=== PATIENT | female | born 1955 | race Two or more races ===

== ENCOUNTER 2021-06-11 10:11 | Emergency (ER) | payer OTHER ==
[~2021-06-11] VITALS: Ht 160 cm; Wt 81.6 kg
[2021-06-11] MEDS ORDERED: LISI-659 PO (10:36)
[2021-06-11] MEDS ORDERED: HYDR12.55 PO (10:36)
[2021-06-11] MEDS ORDERED: MORPHINE SULFATE 2 MG/1 ML DISP.SYRIN IV ONE ×2 (11:00→13:15)
[2021-06-11] MEDS ORDERED: IV NORMAL SALINE 1000 ML BAG IV ONE ×2 (11:00→12:15)
[2021-06-11] MEDS ORDERED: ONDANSETRON 4 MG/2 ML VIAL IV ONE (11:00)
[2021-06-11] MEDS ORDERED: ONDANSETRON 4 MG/2 ML VIAL ONE (11:25)
[2021-06-11] MEDS ORDERED: MORPHINE SULFATE 2 MG/1 ML DISP.SYRIN ONE ×2 (11:25→13:14)
[2021-06-11 11:26] LABS: HEMATOCRIT 43.9 % (31.2-41.9); MEAN CORPUSCULAR HEMOGLOBIN 27.8 uug (24.7-32.8); MEAN CORPUSCULAR VOLUME 83.8 fL (75.5-95.3); PLATELET COUNT (AUTO) 275 K/uL (179-408)
[2021-06-11 11:29] LABS: CARBON DIOXIDE 31 mmol/L (21-32); CHLORIDE 102 mmol/L (98-107); CREATININE 0.8 mg/dL (0.6-1.3); GLUCOSE 120 mg/dL (74-106); POTASSIUM 3.7 mmol/L (3.5-5.1); UREA NITROGEN, BLOOD 9 mg/dL (7-18)
[2021-06-11 11:40] LABS: ALANINE AMINOTRANSFERASE 14 U/L (14-59); ALKALINE PHOSPHATASE 123 U/L (50-136); ASPARTATE AMINOTRANSFERASE 10 U/L (15-37); BILIRUBIN,TOTAL 0.4 mg/dL (0.2-1.0); TOTAL PROTEIN, SERUM 7.4 g/dL (6.4-8.2)
[2021-06-11 11:41] LABS: BILIRUBIN,DIRECT < 0.1 mg/dL (0.0-0.2)
[2021-06-11 12:38] LABS: *BILIRUBIN,URIN NEGATIVE (NEGATIVE); *BLOOD, URINE NEGATIVE (NEGATIVE); *CLARITY,URINE CLEAR (CLEAR); *COLOR,URINE YELLOW (YELLOW); *KETONES,URINE NEGATIVE (NEGATIVE); *UROBILINOGEN,URINE 0.2 E.U./dl (NORMAL); LEUKOCYTE ESTERASE ,URINE NEGATIVE (NEGATIVE); NITRITE, URINE NEGATIVE (NEGATIVE); UGLUCOSE NEGATIVE (NEGATIVE)
[2021-06-11] MEDS ORDERED: IV NORMAL SALINE 250 ML IV ONE (12:59)
[2021-06-11] MEDS ORDERED: SWABABLE VALVE TRANSFER SET EA MC ONE (12:59)
[2021-06-11] MEDS ORDERED: IOHEXOL 350 100 ML INFUS..BTL ONE (12:59)
[2021-06-11] MEDS ORDERED: PRED20TA PO (13:34)
[2021-06-11] MEDS ORDERED: HYDR-4209 PO (13:34)
--- NOTE | 2021-06-11 13:47 | NUR ---
IV removed. Catheter intact and site benign. Pressure and 4x4 gauze applied to site. No bleeding noted. Patient discharged to home in stable condition and steady gait. Written and verbal after care instructions given to patient and daughter. Patient and family verbalized understanding and compliance of instructions. Stressed follow up with primary doctor (internal medicine doctor) or return to ER for worsening s/s.
== END 2021-06-11 13:47 | disposition home or self-care (01) ==
LOC: ER 10:32
DX: M54.42 Lumbago with sciatica, left side (principal); R10.32 Left lower quadrant pain; D25.9 Leiomyoma of uterus, unspecified; K57.30 Diverticulosis of large intestine without perforation or abscess without bleeding; I10 Essential (primary) hypertension
CPT/HCPCS: 36415; 74174; 80048; 80076; 81003; 85025; 85730; 96361; 96374; 96375; 96376; 99285; J2270 ×2; J2405; Q9967; A4663; J7030; J7050